=== PATIENT | female | born 1970 | race Caucasian/White ===

== ENCOUNTER 2017-09-14 23:23 | Emergency (ER) | payer OTHER ==
[~2017-09-14] VITALS: Ht 165.1 cm; Wt 72.6 kg
[2017-09-14 23:40] VITALS: Ht 165.1 cm; Wt 72.6 kg
[2017-09-15 01:08] VITALS: BP 180/94
== END 2017-09-15 01:02 | disposition home or self-care (01) ==
LOC: ED 23:23
DX: J02.9 Acute pharyngitis, unspecified (principal); K12.0 Recurrent oral aphthae; R03.0 Elevated blood-pressure reading, without diagnosis of hypertension; J45.909 Unspecified asthma, uncomplicated
CPT/HCPCS: J1100; J1885